=== PATIENT | male | born 2000 | race Caucasian/White ===

== ENCOUNTER → 2023-01-25 10:26 | Outpatient (BNVA) | payer OTHER, SELFPAY | PROVIDERS: Family Provider Nurse Practitioner Family; PCP Family Medicine; Visit Provider Nurse Practitioner Family | DX: R39.9 Unspecified symptoms and signs involving the genitourinary system (principal); A08.4 Viral intestinal infection, unspecified | CPT/HCPCS: 81000; 87086 ==

== ENCOUNTER → 2023-02-07 09:30 | Outpatient (BNVA) | payer OTHER, SELFPAY | PROVIDERS: Family Provider Nurse Practitioner Family; PCP Family Medicine; Visit Provider Nurse Practitioner | DX: R31.9 Hematuria, unspecified (principal); R11.0 Nausea; R53.83 Other fatigue; R10.9 Unspecified abdominal pain | CPT/HCPCS: 80053; 81000; 82150; 83690; 84443; 85025 ==